=== PATIENT | female | born 1930 | race Two or more races ===

== ENCOUNTER 2021-05-28 08:45 | Inpatient (IN) | payer OTHER ==
[~2021-05-28] VITALS: Ht 149.9 cm; Wt 66.2 kg
[2021-05-28] MEDS ORDERED: ACID REDUCER10 MG PO (11:25)
[2021-05-28] MEDS ORDERED: ALPRAZOLAM XR2 MG PO (11:25)
[2021-05-28] MEDS ORDERED: COZAAR100 MG PO (11:25)
[2021-05-28] MEDS ORDERED: ZOCOR20 MG PO (11:26)
[2021-05-28] MEDS ORDERED: AMLODIPINE BESYL5 MG PO (11:26)
[2021-06-02] MEDS ORDERED: FAMOTIDINE20 MG (14:39)
[2021-06-02] MEDS ORDERED: MECLIZINE HCL12.5 MG (14:40)
[2021-06-06] MEDS ORDERED: LEVOFLOXACIN500 MG PO (12:27)
[2021-06-06] MEDS ORDERED: ACETAMINOPHEN500 M2 PO (12:27)
== END 2021-06-06 15:33 | disposition home or self-care (01) | DRG 331 ==
LOC: SURH 06-02 07:00 → O/R 06-02 07:01 → SURH 06-02 07:01
PROVIDERS: ADMIT Surgery; ATTEND Surgery
PROC: 0WUF0JZ Supplement Abdominal Wall with Synthetic Substitute, Open Approach (ICD-10-PCS; 2021-06-02)
PROC: 0DBU0ZX Excision of Omentum, Open Approach, Diagnostic (ICD-10-PCS; 2021-06-02)
PROC: 0DBN0ZZ Excision of Sigmoid Colon, Open Approach (ICD-10-PCS; principal; 2021-06-02 07:00)
PROC: 4A12X4Z Monitoring of Cardiac Electrical Activity, External Approach (ICD-10-PCS; 2021-06-03)
DX: C18.7 Malignant neoplasm of sigmoid colon (principal); Z43.3 Encounter for attention to colostomy; I13.10 Hypertensive heart and chronic kidney disease without heart failure, with stage 1 through stage 4 chronic kidney disease, or unspecified chronic kidney disease; N18.31 Chronic kidney disease, stage 3a; E65 Localized adiposity